=== PATIENT | female | born 1940 | race Caucasian/White ===

== ENCOUNTER 2018-11-07 14:19 | Emergency (ER) | payer SELFPAY ==
[~2018-11-07] VITALS: Ht 177.8 cm; Wt 74.2 kg
[2018-11-07 14:24] VITALS: Ht 177.8 cm; Wt 74.2 kg
== END 2018-11-07 16:08 | disposition left against medical advice (07) ==
LOC: E/R 14:19
DX: Z53.21 Procedure and treatment not carried out due to patient leaving prior to being seen by health care provider (principal)